=== PATIENT | male | born 1995 | race Caucasian/White ===

== ENCOUNTER 2016-10-15 21:31 | Emergency (ER) | payer OTHER ==
[~2016-10-15] VITALS: Ht 175.3 cm; Wt 99.0 kg
[2016-10-15 21:32] VITALS: BP 138/81; PULSE 79; RESP 16; TEMP 97.8; O2SAT 96
[2016-10-15] MEDS ORDERED: AUGM875T PO (23:33)
--- NOTE | 2016-10-15 23:36 | PD ---
HPI Chief Complaint: Cold / Flu Symptoms Time Seen by Provider: 23:27 Travel History International Travel<30 days: No Contact w/Intl Traveler<30days: No Traveled to known affect area: No History of Present Illness HPI 21-year-old male presents for evaluation. For the past 4 days he has had sinus pressure, right ear pressure, cough and congestion. The cough is productive with phlegm production. He had a sore throat but that has resolved. No fevers , chills, rash, recent travel. He has not been using any [id number]-odi-[id number] medication for symptom relief. He has no other complaints at this time. [facility] Past Medical History Medical History: Denies Significant Hx Social History Alcohol Use: No Tobacco Use: Yes Allergies-Medications (Allergen,Severity, Reaction): Coded Allergies: No Known Allergies (Unverified , 10/15/16) Review of Systems Except as stated in HPI: all other systems reviewed are Neg Physical Exam Narrative GENERAL: Well-developed well-nourished male in no acute distress SKIN: Warm and dry. HEAD: Atraumatic. Normocephalic. EYES: Pupils equal and round. No scleral icterus. No injection or drainage. ENT: No nasal bleeding or discharge. Mucous membranes pink and moist. Right tympanic membrane reveals air-fluid levels, no erythema, no perforation. No oral pharyngeal erythema or exudate. NECK: Trachea midline. No JVD. No lymphadenopathy. CARDIOVASCULAR: Regular rate and rhythm. No murmur appreciated. RESPIRATORY: No accessory muscle use. Clear to auscultation. Breath sounds equal bilaterally. No crackles no wheezing or rhonchi Data Data Last Documented VS Vital Signs Date Time Temp Pulse Resp B/P Pulse Ox O2 Delivery O2 Flow Rate FiO2 10/15/16 21:32 97.8 79 16 138/81 96 Room Air [facility] Medical Decision Making Medical Screen Exam Complete: Yes Emergency Medical Condition: Yes Medical Record Reviewed: Yes Differential Diagnosis Sinusitis, eustachian tube dysfunction, otitis media, bronchitis, pneumonia, influenza Narrative Course Examination is consistent with sinusitis, serous otitis media. Plan is to treat with Augmentin, fvwf-cum-bwjates nasal decongestants and cough suppressants. He is stable for discharge. Diagnosis Primary Impression: Sinusitis Qualified Code: J01.90 - Acute non-recurrent sinusitis, unspecified location Additional Impression: Right otitis media Qualified Code: H65.01 - Right acute serous otitis media, recurrence not specified Departure Forms: Tests/Procedures, Work Release Enter return to work date: Oct 16, 2016 Additional Instructions: Use [id number]-[id number] nasal decongestants and cough suppressants. Antibiotic as prescribed. Avoid tobacco products. Follow-up with primary care physician as needed. Return for any emergent medical conditions. Med/Other Pt SpecificInfo: Prescription(s) given Scripts Amoxicillin-Clavulanate (Augmentin)875-125 mg Xdl143 Mg PO BID 10 Days Ref 0 not for use in CrCl <30 ml/min. Prov:Suyapa Rojas MD 10/15/16 Disposition: 01 DISCHARGE HOME Condition: Stable Ronak Rinaldi Oct 15, 2016 23:36
== END 2016-10-16 00:21 | disposition home or self-care (01) ==
LOC: NEPB 21:31
DX: J32.9 Chronic sinusitis, unspecified (principal); H65.01 Acute serous otitis media, right ear; Z72.0 Tobacco use
CPT/HCPCS: 99283